=== PATIENT | male | born 1995 | race Caucasian/White ===

== ENCOUNTER 2018-12-30 14:23 | Emergency (ER) | payer OTHER ==
[~2018-12-30] VITALS: Ht 188 cm; Wt 113.6 kg
[~2018-12-30 14:23] MED LIST: [UNRECOGNIZED DRUG - CODE] MC
[2018-12-30 14:30] VITALS: BP 132/72
[2018-12-30] MEDS ORDERED: NAPR-58 PO (14:34)
[2018-12-30] MEDS ORDERED: IBUPROFEN 600 MG TABLET PO ONE (15:15)
== END 2018-12-30 15:30 | disposition home or self-care (01) ==
LOC: EMS 14:24
DX: M72.2 Plantar fascial fibromatosis (principal)

== ENCOUNTER 2019-09-15 06:03 | Emergency (ER) | payer OTHER ==
[~2019-09-15] VITALS: Ht 188 cm; Wt 113.6 kg
[~2019-09-15 06:03] MED LIST changes: +NAPR-1025 PO
[2019-09-15 07:33] VITALS: BP 139/78
[2019-09-15] MEDS ORDERED: IBUPROFEN 800 MG TABLET PO ONE (07:45)
[2019-09-15] MEDS ORDERED: AMOXICILLIN TRIHYDRATE 250 MG CAPSULE PO ONE (07:45)
== END 2019-09-15 07:57 | disposition home or self-care (01) ==
LOC: EMS 06:03
DX: J03.90 Acute tonsillitis, unspecified (principal); F12.90 Cannabis use, unspecified, uncomplicated